=== PATIENT | female | born 1995 | race Caucasian/White ===

== ENCOUNTER 2016-08-23 03:58 | Emergency (ER) | payer OTHER ==
[~2016-08-23] VITALS: Ht 165.1 cm; Wt 77.1 kg
--- NOTE | 2016-08-23 04:11 | ED UPPER/LOWER EXTREMITY COMPL ---
History of Present Illness General Chief Complaint: Lower Extremity Problems Stated Complaint: RT FOOT PAIN S/P FISH TANK FELL ON FOOT Source: patient Exam Limitations: no limitations Vital Signs & Intake/Output Vital Signs & Intake/Output Vital Signs Date Time Temp Pulse Resp B/P Pulse O2 O2 Flow FiO2 Ox Delivery Rate 08/24 407 96.7 106 18 140/77 96 Room Air Triage Nurses Notes Reviewed? yes Onset: Abrupt Duration: hour(s): Timing: single episode today Severity: moderate Pain/Injury Location: Right: Foot. Method of Injury: direct blow Modifying Factors: Improves With: rest. Worsens With: movement. Associated Symptoms: swelling, redness HPI: 20 yo woman presents with right foot pain after she dropped a fish tank on her right foot tonight. She notes pain, swelling, and difficulty with ambulation. She is otherwise well. Past History Medical History Any Pertinent Medical History? none Surgical History Surgical History: none Family History Hx Contributory? No Review of Systems Review of Systems Constitutional: Reports: no symptoms. EENTM: Reports: no symptoms. Respiratory: Reports: no symptoms. Cardiovascular: Reports: no symptoms. Gastrointestinal/Abdominal: Reports: no symptoms. Genitourinary: Reports: no symptoms. Musculoskeletal: Reports: no symptoms. Skin: Reports: no symptoms. Neurological/Psychological: Reports: no symptoms. Hematologic/Endocrine: Reports: no symptoms. Immunological: Reports: no symptoms. All Other Systems: Reviewed and Negative Physical Exam Physical Exam General Appearance: well developed/nourished, mild distress Head: atraumatic Eyes: Bilateral: normal appearance. Ears, Nose, Throat: normal pharynx, normal ENT inspection, hearing grossly normal Neck: normal inspection, supple Cardiovascular/Respiratory: regular rate/rhythm Back: normal inspection Foot Right: swelling, erythema, on dorsum, mild abrasion, diffuse tenderness. 2+ distal pulses. no deformity. Skin: intact, normal color, warm/dry Lymphatic: no anterior cervical jose Progress Differential Diagnosis: contusion, fracture, sprain Plan of Care: Orders Procedure Date/time Status URINE 08/23 424 Complete Laboratory Tests 08/23/168: Urine Test NEGATIVE 08/23/16425: Urine Test Cancelled Diagnostic Imaging: Viewed by Me: Radiology Read. Discussed w/RAD: Radiology Read. Radiology Impression: right foot... swelling... no fx. Comments: PATIENT: YAIMA PRICE PRESENT AGE: 20 PATIENT ACCOUNT NO: [id number] : 94 LOCATION: [facility] ORDERING PHYSICIAN: RONNY AGUDELO MD SERVICE DATE: 08/23/16 EXAM TYPE: RAD - XRY-FOOT COMPLETE, R EXAMINATION: XR FOOT, RIGHT CLINICAL INFORMATION: Right foot pain. COMPARISON: No relevant prior imaging available. TECHNIQUE: 4 views of the right foot. FINDINGS: There is no acute fracture or dislocation. Joint spaces are maintained. There is focal swelling of the soft tissues along the dorsum of the foot best illustrated on the lateral projection. No retained radiodense foreign body. IMPRESSION: There is swelling at the dorsum of the foot. No acute fracture or dislocation. DICTATED BY: KENYA NDIAYE MD DATE/TIME DICTATED:08/23/16505 BRAND MGR:ISABEL DATE/TIME TRANSCRIBED:08/23/16505 CONFIDENTIAL, DO NOT COPY WITHOUT APPROPRIATE AUTHORIZATION. <Electronically signed in Other Vendor System> SIGNED BY: KENYA NDIAYE MD 08/23 0511 Departure Departure Disposition: HOME OR SELF CARE Condition: Stable Clinical Impression Primary Impression: Contusion Referrals: UNKNOWN (PCP/Family) Departure Forms: Customer Survey General Discharge Information
--- NOTE | 2016-08-23 05:11 | RADIOLOGY REPORT ---
EXAMINATION: XR FOOT, RIGHT CLINICAL INFORMATION: Right foot pain. COMPARISON: No relevant prior imaging available. TECHNIQUE: 4 views of the right foot. FINDINGS: There is no acute fracture or dislocation. Joint spaces are maintained. There is focal swelling of the soft tissues along the dorsum of the foot best illustrated on the lateral projection. No retained radiodense foreign body. IMPRESSION: There is swelling at the dorsum of the foot. No acute fracture or dislocation.
[2016-08-23 06:30] VITALS: BP 138/76
== END 2016-08-23 06:32 ==
LOC: ERH 03:58
DX: S90.31XA Contusion of right foot, initial encounter (principal); W20.8XXA Other cause of strike by thrown, projected or falling object, initial encounter; Y93.9 Activity, unspecified; Y92.9 Unspecified place or not applicable
CPT/HCPCS: 73630-RT; 81025